=== PATIENT | female | born 1970 | race Hispanic/Latino ===

== ENCOUNTER 2017-04-12 17:04 | Emergency (ER) | payer SELFPAY ==
[~2017-04-12 17:04] MED LIST: ISOVUE-370 76%-LOCM 1 ML ONE
[2017-04-12 17:39] LABS: #Eosinphils 0.2 thou/uL (0.0-0.7); #Lymphocytes 3.1 thou/uL (1.20-3.40); #Monocytes 0.5 thou/uL (0.11-0.59); #Neutrophils 4.4 thou/uL (1.40-6.50); %Basophils 0.5 % (0.0-1.0); %Eosinophils 2.4 % (0.0-10.0); %Lymphocytes 37.5 % (21.0-51.0); %Monocytes 6.5 % (0.0-10.0); Hematocrit 44.1 % (36.0-47.0); Mean Platelet Volume 7.1 fL (7.4-10.4); Red Blood Cell (RBC) Count 4.98 mill/uL (4.20-5.40); White Blood Cell (WBC) Count 8.2 thou/uL (4.8-10.8)
[2017-04-12 18:01] LABS: ALT (SGPT) 31 U/L (8-55); AST (SGOT) 22 U/L (5-34); Alkaline Phosphatase 80 U/L (40-150); Anion Gap 11 mmol/L (10-20); BUN (Urea Nitrogen) 13 mg/dL (7.0-18.7); Bilirubin, Total 0.3 mg/dL (0.2-1.2); Calc. Creatinine Clearance 0 mL/min (70-130); Calcium 9.1 mg/dL (7.8-10.44); Carbon Dioxide 26 mmol/L (22-29); Chloride 105 mmol/L (98-107); Estimated GFR-MDRD Greater than 90; Globulin 3.1 g/dL (2.4-3.5); Lipase 25 U/L (8-78); Protein, Total 7.1 g/dL (6.0-8.3)
[2017-04-12 18:20] LABS: Lactic Acid - Sepsis 1.3 mmol/L (0.5-2.2)
[2017-04-12 18:36] LABS: Troponin I Less than 0.010 ng/mL (< 0.028)
[2017-04-12] MEDS ORDERED: Morphine 2 MG/ML SYRINGE ONE (18:40)
[2017-04-12] MEDS ORDERED: Dicyclomine 20 MG TAB ONE (18:40)
[2017-04-12] MEDS ORDERED: Ondansetron HCl/PF 4 MG/2 ML Vial ONE (18:40)
[2017-04-12 18:46] LABS: Bilirubin Negative (Negative); Blood, Urine Negative (Negative); Glucose, Urine (Dipstick) Negative (Negative); Ketone, Urine Negative (Negative); Nitrite Negative (Negative); Protein, Urine (Dipstick) Negative (Neg-Trace); Urobilinogen 0.2 mg/dL (0.2-1.0)
--- NOTE | 2017-04-12 20:57 | CT ---
CT OF ABDOMEN AND PELVIS PERFORMED WITH INTRAVENOUS CONTRAST ENHANCEMENT: History: Abdominal pain for the past two months which has been getting worse. Gallbladder removed in October. FINDINGS: The lung bases show some atelectatic change and ground glass opacity. Liver shows evidence for fatty change. It is borderline in size with a somewhat elongated right lobe . The spleen is within normal limits. Pancreas region is unremarkable and the gallbladder has been r emoved. Right and left adrenal glands and right and left kidneys are normal in size. There is no significant periaortic or mesenteric adenopathy. CT OF PELVIS PERFORMED WITH CONTRAST ENHANCEMENT: Periumbilical hernia is present. Herniation of bowel without signs of obstruction. I do not see any inflammatory process in the region of the appendix. Appendix appears to be small and somewhat diffic ult to visualize but normal in caliber. There is no evidence of adenopathy, mass, or free fluid. IMPRESSION: 1. No acute abnormalities of the abdomen or pelvis. 2. Fatty change of the liver which is borderline in size. 3. Periumbilical hernia. POS: [facility]
== END 2017-04-12 21:15 | disposition home or self-care (01) ==
LOC: ERS 17:04
DX: K43.9 Ventral hernia without obstruction or gangrene (principal); E66.9 Obesity, unspecified; Z79.899 Other long term (current) drug therapy
CPT/HCPCS: 51701; 74177; 80053; 81003; 81025; 82553; 83605; 83690; 83735; 84484; 85025; 93005; 96361; 96374; 96375; A4353; J2270; J2405

== ENCOUNTER 2019-07-07 16:09 | Outpatient (CLI) | payer OTHER ==
--- NOTE | 2019-07-07 17:34 | RAD ---
Exam:2 views left knee HISTORY: Pain x1 year COMPARISON: None FINDINGS: Preserved joint spaces. No fracture or malalignment. No joint effusion. IMPRESSION: Unremarkable 2 views left knee.
== END 2019-07-07 16:10 | disposition home or self-care (01) ==
LOC: BICRAD 16:09
PROVIDERS: ATTEND Family Medicine
DX: M25.562 Pain in left knee (principal)

== ENCOUNTER 2020-04-16 13:48 | Outpatient (CLI) | payer OTHER ==
--- NOTE | 2020-04-16 14:41 | RAD ---
EXAM: XR Abdomen 1 View/KUB PROVIDED CLINICAL HISTORY: Left lower quadrant abdominal pain for 3 days. COMPARISON: None FINDINGS: Bowel gas pattern is nonspecific. No suspicious calcifications are seen. Surgical clips overlie the r ight upper quadrant. Liver is enlarged in craniocaudal dimensions, but this is likely on the basis of a Blair's lobe configuration. Surgical clips overlie the right upper quadrant. Osseous structures have a normal appearance IMPRESSION: Nonspecific bowel gas pattern.
== END 2020-04-16 13:49 | disposition home or self-care (01) ==
LOC: BICRAD 13:48
PROVIDERS: ATTEND Family Medicine
DX: R10.9 Unspecified abdominal pain (principal)
CPT/HCPCS: 74018

== ENCOUNTER 2020-05-10 06:58 | Outpatient (CLI) | payer OTHER ==
--- NOTE | 2020-05-10 10:00 | ULT ---
ULTRASOUND ABDOMEN: HISTORY: Abdominal pain. COMPARISON: None. FINDINGS: Real-time, hogan scale, and color evaluation of the abdomen is performed. Visualized portions of the aorta, IVC, and pancreas are unremarkable. Diffuse increased hepatic echotexture with decreased penetrability. The liver length is 23 cm. No h epatic mass. The portal vein is patent with antegrade flow. Common bile duct is normal at 5 mm. The right kidney measures 11.1 x 5.5 x 5.2 cm without mass, hydronephrosis, or abnormal calcification s. The spleen measures 9.8 cm in length. The left kidney measures 12.2 x 6.4 x 5.5 cm without mass, hydronephrosis, or abnormal calcifications . IMPRESSION: Hepatomegaly with diffuse hepatic steatosis. POS: [facility]
== END 2020-05-10 06:59 | disposition home or self-care (01) ==
LOC: BICULT 06:58
PROVIDERS: ATTEND Family Medicine
DX: R10.9 Unspecified abdominal pain (principal); R16.0 Hepatomegaly, not elsewhere classified; K76.0 Fatty (change of) liver, not elsewhere classified
CPT/HCPCS: 93975

== ENCOUNTER 2021-03-13 11:50 | Emergency (ER) | payer SELFPAY ==
[2021-03-13 12:36] LABS: #Basophils 0.1 thou/uL (0.0-0.2); #Eosinphils 0.1 thou/uL (0.0-0.7); #Lymphocytes 1.8 thou/uL (1.20-3.40); #Monocytes 0.4 thou/uL (0.11-0.59); %Basophils 1.1 % (0.0-1.0); %Eosinophils 1.5 % (0.0-10.0); %Lymphocytes 23.9 % (21.0-51.0); %Monocytes 5.4 % (0.0-10.0); %Neutrophils 68.1 % (42.0-75.0); Hemoglobin 15.2 g/dL (12.0-16.0); Mean Corpuscular HGB CONC 33.1 g/dL (32.0-36.0); Mean Corpuscular Hemoglobin 28.7 pg (27.0-31.0); Mean Corpuscular Volume 86.6 fL (78.0-98.0); Mean Platelet Volume 7.2 fL (7.4-10.4); Platelet Count 293 thou/uL (130-400); White Blood Cell (WBC) Count 7.4 thou/uL (4.8-10.8)
[2021-03-13 12:54] LABS: ALT (SGPT) 17 U/L (8-55); AST (SGOT) 15 U/L (5-34); Albumin 4.2 g/dL (3.5-5.0); Alkaline Phosphatase 69 U/L (40-110); Anion Gap 11 mmol/L (10-20); BUN (Urea Nitrogen) 11 mg/dL (7.0-18.7); Bilirubin, Total 0.5 mg/dL (0.2-1.2); Calc. Creatinine Clearance 0 mL/min (70-130); Calcium 9.5 mg/dL (7.8-10.44); Carbon Dioxide 26 mmol/L (22-29); Chloride 106 mmol/L (98-107); Globulin 3.1 g/dL (2.4-3.5); Glucose 108 mg/dL (70-105); Potassium 4.2 mmol/L (3.5-5.1); Protein, Total 7.3 g/dL (6.0-8.3); Sodium 139 mmol/L (136-145)
[2021-03-13] MEDS ORDERED: Ketorolac Tromethamine 30 MG/ML VIAL ONE (12:56)
[2021-03-13 13:22] LABS: CK (CPK) 157 U/L (29-168); Lipase 27 U/L (8-78); Magnesium 1.8 mg/dL (1.6-2.6)
[2021-03-13 14:38] LABS: Clarity Clear (Clear)
[2021-03-13 14:39] LABS: Bilirubin Negative (Negative); Blood, Urine 2+ (Negative); Glucose, Urine (Dipstick) Normal (Negative); Ketone, Urine Trace mg/dL (Negative); Leukocyte Negative Leu/uL (Negative); Nitrite Negative (Negative); Protein, Urine (Dipstick) Negative (Neg-Trace); Specific Gravity, Urine 1.012 (1.002-1.036); Urobilinogen Normal mg/dL (Less than 2)
[2021-03-13 14:40] LABS: Bacteria/HPF 1+ HPF (None Seen)
== END 2021-03-13 16:10 | disposition home or self-care (01) ==
LOC: ERS 11:50
DX: R07.89 Other chest pain (principal); N39.0 Urinary tract infection, site not specified
CPT/HCPCS: 36415; 71045; 80053; 81003; 81015; 82550; 83690; 83735; 84443; 84484; 85025; 93005; 96374; J1885

== ENCOUNTER 2021-12-20 14:54 | Outpatient (CLI) | payer OTHER | END 2021-12-20 14:55 | disposition home or self-care (01) | LOC: BICULT 14:54 | PROVIDERS: ATTEND Family Medicine | DX: R22.1 Localized swelling, mass and lump, neck (principal); E04.2 Nontoxic multinodular goiter | CPT/HCPCS: 76536 ==

== ENCOUNTER 2022-07-31 11:12 | Outpatient (CLI) | payer SELFPAY | END 2022-07-31 11:13 | disposition home or self-care (01) | LOC: BICRAD 11:12 | PROVIDERS: ATTEND Family Medicine | DX: M79.601 Pain in right arm (principal) ==

== ENCOUNTER 2023-02-09 08:26 | Outpatient (CLI) | payer OTHER | END 2023-02-09 08:27 | disposition home or self-care (01) | LOC: ULT 08:26 | PROVIDERS: ATTEND Nurse Practitioner Family | DX: E04.1 Nontoxic single thyroid nodule (principal) | CPT/HCPCS: 76536 ==

== ENCOUNTER 2023-12-16 15:26 | Outpatient (CLI) | payer OTHER | END 2023-12-16 15:27 | disposition home or self-care (01) | LOC: BICRAD 15:26 | PROVIDERS: ATTEND Family Medicine | DX: R76.12 Nonspecific reaction to cell mediated immunity measurement of gamma interferon antigen response without active tuberculosis (principal) | CPT/HCPCS: 71046 ==